=== PATIENT | male | born 1990 | race Caucasian/White ===

== ENCOUNTER 2017-02-11 11:52 | Emergency (ER) | payer MEDICAID, OTHER ==
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
[2017-02-11 13:34] VITALS: BP 121/76
--- NOTE | 2017-02-13 14:33 | US ---
EXAM DATE: 02/11/17 PATIENT'S AGE: 26 Patient: TIA ARANDA Facility: [place], [place] Site . Site : 1990 Study: US Testicle [id number]/3/2017 12:54:50 PM Ordering Physician: Doctor Gillespie Final Report: Indication: Testicular pain. Findings: Right testicle is uniform echotexture. It measures roughly 4 x 2 x 2.7 cm. 1 cm epididymal head cyst. Normal color and spectral Doppler blood flow testicular parenchyma. No hydrocele. Left testicle 4 x 2 x 2.4 cm. Uniform echotexture. No hydrocele. Epididymis is normal. Normal color and spectral Doppler blood flow within the testicle and epididymis. Evaluation over the inguinal canal region bilaterally shows no hernia. Impression: Normal sonographic evaluation of the testicles and scrotal contents. Dictated by South Lee MD @ Feb 11 2017 1:39PM (Electronic Signature) Report Signed by Proxy. FREDY
--- NOTE | 2017-02-13 14:33 | US ---
EXAM DATE: 02/11/17 PATIENT'S AGE: 26 Patient: TIA ARANDA Facility: [place], [place] Site . Site : 1990 Study: US Testicle [id number]/3/2017 12:54:50 PM Ordering Physician: Doctor Gillespie Final Report: Indication: Testicular pain. Findings: Right testicle is uniform echotexture. It measures roughly 4 x 2 x 2.7 cm. 1 cm epididymal head cyst. Normal color and spectral Doppler blood flow testicular parenchyma. No hydrocele. Left testicle 4 x 2 x 2.4 cm. Uniform echotexture. No hydrocele. Epididymis is normal. Normal color and spectral Doppler blood flow within the testicle and epididymis. Evaluation over the inguinal canal region bilaterally shows no hernia. Impression: Normal sonographic evaluation of the testicles and scrotal contents. Dictated by South Lee MD @ Feb 11 2017 1:39PM (Electronic Signature) Report Signed by Proxy. FREDY
== END 2017-02-11 13:35 | disposition home or self-care (01) ==
LOC: MW.ED 11:52
DX: K40.90 Unilateral inguinal hernia, without obstruction or gangrene, not specified as recurrent (principal); F17.210 Nicotine dependence, cigarettes, uncomplicated; Z79.899 Other long term (current) drug therapy; Z88.0 Allergy status to penicillin; Z98.890 Other specified postprocedural states
CPT/HCPCS: 76870; 76870-26; 81001; 87086; 87491; 87591; 93976; 93976-26; 99283; 99284-25

== ENCOUNTER 2017-06-30 07:22 | Emergency (ER) | payer MEDICAID ==
[2017-06-30] MEDS ORDERED: Sodium Chloride 0.9% 1,000 ML IV ONE (07:31)
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
[2017-06-30 08:42] LABS: CHLORIDE,CL 105 mmol/L (98-110); SODIUM,NA 140 mmol/L (136-146)
[2017-06-30 10:43] VITALS: BP 125/79
== END 2017-06-30 10:54 | disposition home or self-care (01) ==
LOC: MW.ED 07:22
DX: R42 Dizziness and giddiness (principal); R11.2 Nausea with vomiting, unspecified; G89.29 Other chronic pain; I10 Essential (primary) hypertension; F17.210 Nicotine dependence, cigarettes, uncomplicated; Z79.899 Other long term (current) drug therapy; Z88.0 Allergy status to penicillin
CPT/HCPCS: 36415; 80053; 80305; 81001; 85025; 93005; 96360; 99284; J7040; 99283

== ENCOUNTER 2017-11-27 14:02 | Emergency (ER) | payer BC, MEDICAID ==
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
[2017-11-27 14:25] VITALS: BP 149/89
== END 2017-11-27 14:25 | disposition home or self-care (01) ==
LOC: MW.ED 14:02
DX: S30.0XXA Contusion of lower back and pelvis, initial encounter (principal); I10 Essential (primary) hypertension; F17.210 Nicotine dependence, cigarettes, uncomplicated; Z88.0 Allergy status to penicillin; Z79.899 Other long term (current) drug therapy; W22.8XXA Striking against or struck by other objects, initial encounter
CPT/HCPCS: 99282

== ENCOUNTER 2018-01-28 21:59 | Emergency (ER) | payer BC ==
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
[2018-01-29 00:39] VITALS: BP 125/82
--- NOTE | 2018-01-29 16:13 | CR ---
EXAM DATE: 01/28/18 PATIENT'S AGE: 27 Patient: TIA ARANDA Facility: [place], [place] Site . Site : 1990 Study: XRay Extremity Right HAND [id number]/[id number] 10:35:15 PM Ordering Physician: Doctor Gillespie Final Report: INDICATION: Right 5th digit pain after fall today TECHNIQUE: Hand radiograph 3 views right COMPARISON: None FINDINGS: Evaluation of the digits on the lateral examination is moderately degraded due to overlapped finger positioning. Bones: There is a comminuted, palmarly angulated fracture of the distal 5th metacarpal head neck junction. Joints: The carpal and metacarpal-phalangeal joints are unremarkable in appearance. The interphalangeal joints are normal in appearance. Soft tissues: Unremarkable. No radiopaque foreign bodies are seen. IMPRESSION: 1. There is a comminuted, palmarly angulated fracture of the distal 5th metacarpal head neck junction. Dictated by Roger Morales MD @ 01/28/2018 10:39:19 PM Dictated by: Roger Morales MD @ 01/28/2018 22:39:22 (Electronic Signature) Report Signed by Proxy. FREDY
== END 2018-01-28 23:10 | disposition home or self-care (01) ==
LOC: MW.ED 21:59
DX: S62.396A Other fracture of fifth metacarpal bone, right hand, initial encounter for closed fracture (principal); Z88.0 Allergy status to penicillin; I10 Essential (primary) hypertension; W19.XXXA Unspecified fall, initial encounter
CPT/HCPCS: 73130-26-RT; 73130-RT; 99283

== ENCOUNTER 2018-02-01 21:50 | Emergency (ER) | payer BC ==
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
[2018-02-01 23:41] VITALS: BP 148/72
--- NOTE | 2018-02-02 17:21 | CR ---
EXAM DATE: 02/01/18 PATIENT'S AGE: 27 Patient: TIA ARANDA Facility: [place], [place] Site . Site : 1990 Study: XRay Extremity Right hand [id number]/24/2018 11:10:50 PM Ordering Physician: Doctor Gillespie Final Report: HISTORY: Re- injured hand. FINDINGS: Two views of the right hand are compared with 05 Feb 2018. Fine bony detail is obscured by overlying cast. There is a comminuted fracture of the distal 5th metacarpal with palmar angulation of the distal fracture fragment in unchanged alignment. No new fracture is seen. IMPRESSION: Comminuted fracture of the distal 5th metacarpal with palmar angulation of distal fracture fragment unchanged from prior exam. Dictated by Mimi Grewal MD @ 02/01/2018 11:24:53 PM Dictated by: Mimi Grewla MD @ 02/01/2018 23:24:57 (Electronic Signature) Report Signed by Proxy. FREDY
== END 2018-02-01 23:42 | disposition home or self-care (01) ==
LOC: MW.ED 21:50
DX: S62.306D Unspecified fracture of fifth metacarpal bone, right hand, subsequent encounter for fracture with routine healing (principal); X58.XXXD Exposure to other specified factors, subsequent encounter; I10 Essential (primary) hypertension; Z88.0 Allergy status to penicillin
CPT/HCPCS: 73120-26-RT; 73120-RT; 99283

== ENCOUNTER 2018-09-16 19:48 | Emergency (ER) | payer BC ==
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
[2018-09-16] MEDS ORDERED: Ketorolac 30 MG/ML SDV IVPUSH ONE (20:02)
[2018-09-16] MEDS ORDERED: Famotidine 20 MG/2 ML SDV IVPUSH ONE (20:02)
[2018-09-16] MEDS ORDERED: Sodium Chloride 0.9% 10 ML Syringe FLUSH PRN (20:02)
[2018-09-16] MEDS ORDERED: Sodium Chloride 0.9% 1,000 ML IV ONE (20:02)
[2018-09-16] MEDS ORDERED: Sodium Chloride 0.9% 2.5 ML Syringe FLUSH PRN (20:02)
[2018-09-16] MEDS ORDERED: Aspirin 81 MG Tab.Chew PO ONE (20:02)
[2018-09-16] MEDS ORDERED: LORazepam 2 MG/ML SDV IVPUSH ONE (20:30)
[2018-09-16 20:42] LABS: CHLORIDE,CL 108 mmol/L (98-107); SODIUM,NA 144 mmol/L (136-148)
[2018-09-16 20:56] VITALS: BP 154/94
--- NOTE | 2018-09-17 18:13 | CR ---
EXAM DATE: 09/16/18 PATIENT'S AGE: 28 Patient: TIA ARANDA Facility: [place], [place] Site . Site : [id number] Study: XRay Chest -09/16/2018 8:26:06 PM Ordering Physician: Doctor iGllespie Final Report: INDICATION: Chest pain TECHNIQUE: Chest 1 view COMPARISON: None FINDINGS: Cardiovascular and mediastinum: Heart size and vasculature are normal in caliber and appearance. Lungs and pleural spaces: Lungs are clear. No sign of infiltrate or mass. No sign of pleural effusion. No pneumothorax. Bones and soft tissues: No significant findings. IMPRESSION: No acute or significant findings. Dictated by Jordy Nagy MD @ Sep 16 2018 8:52PM (Electronic Signature) Report Signed by Proxy. FREDY
== END 2018-09-16 20:55 | disposition home or self-care (01) ==
LOC: MW.ED 19:48
DX: R07.89 Other chest pain (principal); F41.9 Anxiety disorder, unspecified; F17.210 Nicotine dependence, cigarettes, uncomplicated; I10 Essential (primary) hypertension; Z88.0 Allergy status to penicillin
CPT/HCPCS: 36415; 71045; 80053; 81001; 82150; 83690; 84484; 85025; 85610; 93005; 96361; 96374; 96375; 99285; A9270; J1885; J2060; J3490; J7040; 99283

== ENCOUNTER 2018-12-09 15:57 | Emergency (ER) | payer BC ==
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
--- NOTE | 2018-12-09 18:02 | CR ---
INDICATION: Chest pain. Shortness of breath. COMPARISON: none TECHNIQUE: Two view chest. FINDINGS: The lungs are clear. There is no evidence of pneumothorax. The visualized ribs appear intact. The heart, mediastinum and pulmonary vessels are of normal size. There is no evidence of pleural fluid. IMPRESSION: Negative chest. Dictated by Toan Dias MD @ Dec 09 2018 5:59PM Signed by Dr. Toan Dias @ Dec 09 2018 6:00PM
[2018-12-09 18:19] VITALS: BP 116/78
== END 2018-12-09 18:19 | disposition home or self-care (01) ==
LOC: MW.ED 15:57
DX: R09.1 Pleurisy (principal); F17.210 Nicotine dependence, cigarettes, uncomplicated; Z88.0 Allergy status to penicillin
CPT/HCPCS: 36415; 71046; 71046-26; 80048; 85025; 87804; 99282; 99283-25

== ENCOUNTER 2019-07-14 20:01 | Emergency (ER) | payer BC, OTHER ==
[2019-07-14 20:17] VITALS: BP 115/81; PULSE 63
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
--- NOTE | 2019-07-14 20:49 | CR ---
INDICATION: Wrist pain without history of trauma. COMPARISON: Report of the right hand from 01/28/2018 TECHNIQUE: AP, lateral, and oblique views of the right wrist are obtained for a total of three views. FINDINGS: There is no sign of acute fracture or dislocation. An old, healed fracture of the distal shaft of the 5th metacarpal is seen to have approximately 45 degrees radial and volar angulation of the distal portion of the metacarpal. This correlates well with the previous report. The bones of the carpus are in anatomic alignment with the distal radius. There is no sign of significant degenerative change. The soft tissues are normal in appearance with no sign of foreign body. IMPRESSION: No sign of acute osseous injury to the right wrist and no sign of any degenerative change. Old, healed fracture of the distal shaft of the 5th metacarpal Dictated by Kunal Adame MD @ Jul 14 2019 8:45PM Signed by Dr. Kunal Adame @ Jul 14 2019 8:47PM
== END 2019-07-14 21:20 | disposition home or self-care (01) ==
LOC: MW.ED 20:01
DX: M25.531 Pain in right wrist (principal); I12.9 Hypertensive chronic kidney disease with stage 1 through stage 4 chronic kidney disease, or unspecified chronic kidney disease; N18.9 Chronic kidney disease, unspecified; Z88.0 Allergy status to penicillin
CPT/HCPCS: 73110-26-RT; 73110-RT; 99282; 99284-25

== ENCOUNTER 2019-09-02 15:24 | Emergency (ER) | payer BC ==
[2019-09-02 16:16] VITALS: BP 135/85; PULSE 84
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
== END 2019-09-02 17:10 | disposition home or self-care (01) ==
LOC: MW.ED 15:24
DX: J10.1 Influenza due to other identified influenza virus with other respiratory manifestations (principal); N18.9 Chronic kidney disease, unspecified; Z88.0 Allergy status to penicillin
CPT/HCPCS: 87804; 99283

== ENCOUNTER 2019-11-01 21:38 | Emergency (ER) | payer BC ==
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
[2019-11-01 21:50] VITALS: BP 136/80; PULSE 52
== END 2019-11-01 22:07 | disposition home or self-care (01) ==
LOC: MW.ED 21:38
DX: M79.672 Pain in left foot (principal); Z88.0 Allergy status to penicillin
CPT/HCPCS: 99282; 99283

== ENCOUNTER 2020-07-18 19:19 | Emergency (ER) | payer SELFPAY ==
[2020-07-18 19:39] VITALS: BP 133/92; PULSE 87
--- NOTE | 2020-07-18 20:41 | CR ---
INDICATION: Knee pain. TECHNIQUE: Three views right knee. FINDINGS: Probable small right knee effusion. No acute fracture or subluxation in right knee. Probable slight irregularity along the articular surface of the patella. Remainder negative. Dictated by Lucas Reed MD @ Jul 18 2020 8:37PM Signed by Dr. Lucas Reed @ Jul 18 2020 8:39PM
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
== END 2020-07-18 21:25 | disposition home or self-care (01) ==
LOC: MW.ED 19:19
DX: M25.561 Pain in right knee (principal); I12.9 Hypertensive chronic kidney disease with stage 1 through stage 4 chronic kidney disease, or unspecified chronic kidney disease; N18.9 Chronic kidney disease, unspecified; F17.210 Nicotine dependence, cigarettes, uncomplicated; Z88.0 Allergy status to penicillin
CPT/HCPCS: 73562-26-RT; 73562-RT; 99282; 99283

== ENCOUNTER 2021-03-08 14:37 | Emergency (ER) | payer OTHER | END 2021-03-08 14:42 | disposition left against medical advice (07) | LOC: MW.ED 14:37 | DX: Z53.21 Procedure and treatment not carried out due to patient leaving prior to being seen by health care provider (principal) ==

== ENCOUNTER 2021-03-08 16:18 | Emergency (ER) | payer OTHER ==
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
[2021-03-08] MEDS ORDERED: Bacitracin Oint 1 GM U/D Packet TOP ONE (16:35)
[2021-03-08] MEDS ORDERED: Diphtheria,Pertussis(Acell),Tetanus Vaccine 0.5 ML Syringe IM ONE (16:35)
--- NOTE | 2021-03-08 17:50 | CT ---
DATE: 03/08/2021. CLINICAL HISTORY: Patient with fall down stairs; headache neck pain. TECHNIQUE: Standard helical CT image acquisition of the brain was performed. COMPARISON: None available. FINDINGS: There is no intracranial hemorrhage. No extra-axial collection, mass effect, or midline shift. [place]edo white matter differentiation is preserved. Ventricles are normal in size and morphology for patient age. No displaced calvarial fracture. The orbits are unremarkable. The paranasal sinuses are unremarkable. The mastoid air cells are unremarkable. The soft tissues are unremarkable. IMPRESSION: No CT evidence of acute intracranial abnormality or closed head injury. Please note that all CT scans at this facility use dose modulation, iterative reconstruction, and/or weight-based dosing when appropriate to reduce radiation dose to as low as reasonably achievable. Dictated by Tae Ferguson MD @ 03/08/2021 5:50:[address] Tae Ferguson @ Mar 08 2021 5:50PM
--- NOTE | 2021-03-08 17:59 | CT ---
DATE: 03/08/2021. CLINICAL HISTORY: Fall downstairs, head and neck pain. TECHNIQUE: Helical CT acquisition of the cervical spine was performed. Coronal and sagittal reformations were performed and interpreted. COMPARISON: None available. FINDINGS: There is no evidence of acute displaced fracture or traumatic malalignment of the cervical spine. The facets are well aligned. Vertebral body heights are maintained without evidence of significant compression deformity. No evidence of significant trauma at the craniocervical junction. No significant degenerative changes of the cervical spine. No evidence of severe central canal stenosis or foraminal narrowing. The visualized prevertebral soft tissues are unremarkable. The visualized lung apices are unremarkable. IMPRESSION: No acute displaced fracture or traumatic malalignment of the cervical spine. Please note that all CT scans at this facility use dose modulation, iterative reconstruction, and/or weight-based dosing when appropriate to reduce radiation dose to as low as reasonably achievable. Dictated by Tae Ferguson MD @ 03/08/2021 5:57:[address] Tae Ferguson @ Mar 08 2021 5:57PM
[2021-03-08 18:11] VITALS: BP 119/79; PULSE 78
== END 2021-03-08 18:12 | disposition home or self-care (01) ==
LOC: MW.ED 16:18
DX: S16.1XXA Strain of muscle, fascia and tendon at neck level, initial encounter (principal); S09.90XA Unspecified injury of head, initial encounter; I10 Essential (primary) hypertension; Z88.0 Allergy status to penicillin; Z23 Encounter for immunization; W01.0XXA Fall on same level from slipping, tripping and stumbling without subsequent striking against object, initial encounter
CPT/HCPCS: 70450; 70450-26; 72125; 72125-26; 90471; 90715; 99283; 99283-25